=== PATIENT | female | born 1950 | race Caucasian/White ===

== ENCOUNTER 2017-02-26 09:43 | Outpatient (CLI) | payer MEDICARE ==
--- NOTE | 2017-02-26 16:23 | DEXA Report ---
DEXA SCAN: 02/26/2017 CLINICAL INDICATION: Postmenopausal. TECHNIQUE: Dual energy x-ray absorptiometry (DXA) was performed on a [employer] system. Regions measured are the AP spine, femoral neck, and, if needed, forearm. COMPARISON: None. In accordance with the International Society for Clinical Densitometry (ISCD) guidelines, data from previous exams may be reanalyzed using current recommendations and techniques. This is done to allow a more accurate basis for comparison with the current study. FINDINGS The data for the lumbar spine is as follows: REGION BMD (g/cm/cm) T-SCORE Z-SCORE L1 0.927 -1.7 -0.3 L2 0.962 -2.0 -0.6 L3 0.893 -2.6 -1.1 L4 0.806 -3.3 -1.9 TOTAL 0.893 -2.4 -1.0 NOTE: All evaluable vertebrae are used for classification. The data for the hip is as follows: REGION BMD (g/cm/cm) T-SCORE Z-SCORE Neck 0.786 -1.8 -0.4 TOTAL 0.828 -1.4 -0.3 NOTE: The femoral neck or total proximal femur, whichever is lowest, is used for classification. IMPRESSION: THE WHO CLASSIFICATION BASED ON THE INTERNATIONAL REFERENCE STANDARD IS OSTEOPENIA. THE FRACTURE RISK IS INCREASED. RECOMMENDATION: Patients with diagnosis of osteoporosis or osteopenia should have regular bone mineral density assessment. For those eligible for Medicare, routine testing is allowed once every 2 years. Testing frequency can be increased for patients who have rapidly progressing disease or for those who are receiving medical therapy to restore bone mass. COMMENT: World Health Organization (WHO) definitions for osteoporosis and osteopenia: NORMAL BMD: T-score at -1.0 or higher, fracture risk is low. OSTEOPENIA BMD: T-score between -1.0 and -2.5, fracture risk is increased. OSTEOPOROSIS BMD: T-score at -2.5 or lower, fracture risk high. National Osteoporosis Foundation recommends: 1. Obtain adequate dietary calcium (at least 1200 mg per day) and vitamin D (400 -800 international units per day). 2. Participate, as appropriate, in regular weightbearing and muscle- strengthening exercise. 3. Avoid tobacco use and reduce alcohol and caffeine intake. 4. For more detailed information see the website at www.NOF.org. MTDD
== END 2017-02-26 09:44 | disposition home or self-care (01) ==
LOC: DI 09:43
PROVIDERS: ATTEND Physician Assistant
DX: Z13.820 Encounter for screening for osteoporosis (principal); M85.89 Other specified disorders of bone density and structure, multiple sites; Z78.0 Asymptomatic menopausal state
CPT/HCPCS: 77080

== ENCOUNTER 2017-06-21 10:41 | Outpatient (CLI) | payer MEDICARE ==
[2017-06-21 18:42] LABS: THYROID STIMULATING HORMONE 0.41 uIU/mL (0.34-5.60)
[2017-06-21 18:58] LABS: CHOL/HDL RATIO 4.4 (<4.4); CHOLESTEROL 255 mg/dL; HDL CHOLESTEROL 58 mg/dL; LDL CHOLESTEROL,CALCULATED 177 mg/dL; LDL/HDL RATIO 3.1 (<4.4); MAGNESIUM 2.2 mg/dL (1.7-2.8); VLDL CHOLESTEROL 20 mg/dL
[2017-06-22 14:26] LABS: FREE T4 (FREE THYROXINE) 1.4 ng/dL (0.58-1.64)
== END 2017-06-21 10:42 | disposition home or self-care (01) ==
LOC: LAB.F 10:41
PROVIDERS: ATTEND Internal Medicine
DX: C73 Malignant neoplasm of thyroid gland (principal); E03.9 Hypothyroidism, unspecified; E78.5 Hyperlipidemia, unspecified; R07.81 Pleurodynia; I10 Essential (primary) hypertension; E55.9 Vitamin D deficiency, unspecified; Z90.09 Acquired absence of other part of head and neck
CPT/HCPCS: 36415; 80061; 82306; 82310; 83721; 83735; 84436; 84439; 84443; 84481; 85379

== ENCOUNTER 2017-07-01 14:25 | Outpatient (CLI) | payer MEDICARE ==
--- NOTE | 2017-07-01 17:40 | Ultrasound Report ---
RIGHT LEG VENOUS DUPLEX: 07/01/2017 CLINICAL INDICATION: History of trauma, persistent pain. TECHNIQUE: Real-time sonographic vascular imaging was performed by the test clerk through the right lower extremity utilizing both color flow and Doppler spectral analysis. Multiple financial services representative static images were saved for review. FINDINGS: A right lower extremity venous sonogram is performed revealing the common femoral, superficial femoral, profunda femoris, and popliteal veins to be adequately visualized without intraluminal defects. There is normal venous compression, augmentation, phasicity, and spontaneity of venous flow. In the calf, the visualized more cephalad portions of posterior tibial and peroneal veins are grossly compressible, without filling defects. IMPRESSION: NO EVIDENCE OF DEEP VENOUS THROMBOSIS. TD: 07/01/2017 17:40
== END 2017-07-01 14:26 | disposition home or self-care (01) ==
LOC: DI 14:25
PROVIDERS: ATTEND Internal Medicine
DX: M79.661 Pain in right lower leg (principal); R22.41 Localized swelling, mass and lump, right lower limb

== ENCOUNTER 2019-06-14 09:48 | Outpatient (CLI) | payer MEDICARE ==
[2019-06-14 18:05] LABS: ALBUMIN 4.2 g/dL (3.2-5.5); ALBUMIN/GLOBULIN RATIO 1.6 (1.0-2.2); ALKALINE PHOSPHATASE 53 IU/L (42-121); ALT ALANINE AMINOTRANSFERASE 17 IU/L (10-60); AST ASPARTATE AMINOTRANSFERASE 17 IU/L (10-42); BILIRUBIN,TOTAL 1.2 mg/dL (0.2-1.0); BUN - BLOOD UREA NITROGEN 12 mg/dL (6-20); CALCIUM 8.8 mg/dL (8.5-10.3); CARBON DIOXIDE - CO2 26 mmol/L (21-32); CHLORIDE 105 mmol/L (101-111); CHOL/HDL RATIO 3.9 (<4.4); CHOLESTEROL 223 mg/dL; CREATININE 0.6 mg/dL (0.4-1.0); GFR - MDRD 99 (>89); GLUCOSE 91 mg/dL (70-100); HDL CHOLESTEROL 57 mg/dL; LDL CHOLESTEROL,CALCULATED 152 mg/dL; LDL/HDL RATIO 2.7 (<4.4); SODIUM 139 mmol/L (135-145); TOTAL PROTEIN 6.9 g/dL (6.7-8.2); VLDL CHOLESTEROL 14 mg/dL
== END 2019-06-14 09:49 | disposition home or self-care (01) ==
LOC: LAB.S 09:48
PROVIDERS: ATTEND Registered Nurse
DX: E89.0 Postprocedural hypothyroidism (principal); I48.0 Paroxysmal atrial fibrillation; E78.5 Hyperlipidemia, unspecified
CPT/HCPCS: 36415; 80053; 80061; 83721; 84443

== ENCOUNTER 2021-10-06 11:19 | Emergency (ER) | payer MEDICARE ==
[2021-10-06 11:30] VITALS: BP 139/57
--- NOTE | 2021-10-06 12:21 | ED Physician Documentation ---
PD HPI ABD PAIN - Stated complaint Stated Complaint: ABD PAIN/CONSTIPATION - Chief complaint Chief Complaint: Abd Pain - History obtained from History obtained from: Patient, Family - History of Present Illness Timing - onset: How many days ago (7) Timing - duration: Days (7) Timing - details: Gradual onset, Still present Quality: Cramping Location: All over / everywhere Improved by: Laying still Worsened by: Moving Associated symptoms: Constipation Similar symptoms before: Diagnosis (constipation) Recently seen: Not recently seen - Additional information Additional information: 71-year-old female her last normal bowel movement 1 week ago has developed abdominal pain that comes in waves and she has not been able to produce a stool she did try to use an enema today had no luck as it just would not go in.She indicates that she believes the constipation is related to travel and being out of sync with her usual.She has had this happen to her previously. Review of Systems Constitutional: denies: Fever Ears: denies: Ear pain Nose: denies: Congestion Throat: denies: Sore throat Respiratory: denies: Cough GI: reports: Abdominal Pain, Constipation. denies: Vomiting : denies: Dysuria, Frequency PD PAST MEDICAL HISTORY - Allergies Allergies/Adverse Reactions: Allergies Allergy/AdvReac Type Severity Reaction Status Date / Time Sulfa (Sulfonamide Allergy Unknown Verified 10/06/21 11:30 Antibiotics) PD ED PE NORMAL - General General: Alert and oriented X 3, No acute distress, Well developed/nourished - HEENT HEENT: Atraumatic, PERRL, EOMI - Neck Neck: Supple, no meningeal sign - Respiratory Respiratory: No respiratory distress - Abdomen Abdomen: Normal bowel sounds, Soft, Non tender, Non distended, No organomegaly - Rectal Rectal: Other (With Ada as a acct exec I am able to examine the rectum find impacted stool I am able to break up the impactions.) - Derm Derm: Normal color, Warm and dry, No rash - Extremities Extremities: No deformity, No edema - Neuro Neuro: Alert and oriented X 3, rv mechanic 2-12 intact, No motor deficit, No sensory deficit, Normal speech Eye Opening: Spontaneous Motor: Obeys Commands Verbal: Oriented GCS Score: 15 - Psych Psych: Normal mood, Normal affect Results - Vitals Vitals: Vital Signs - 24 hr 10/06/21 11:26 Temperature 36.4 C L Heart Rate 97 Respiratory 18 Rate Blood Pressure 139/57 H O2 Saturation 99 PD MEDICAL DECISION MAKING - ED course Complexity details: considered differential, d/w patient ED course: 71-year-old female with a weeklong history of constipation has fecal impaction this is disrupted a enema is placed and she has success. Departure - Departure Disposition: Home, Self Care Clinical Impression: Constipation Qualifiers: Constipation type: unspecified constipation type Qualified Code(s): K59.00 - Constipation, unspecified Condition: Stable Instructions: ED Constipation Follow-Up: Frank Peña MD [Primary Care Provider] - Comments: Lelo, today it looks like you are constipated and looks like we have had some relief in the emergency department. I suspect there is more to come. My recommendation is to take some milk of magnesia when you return home to finish cleaning out. Then to retrain the colon follow that with 2 weeks of regular use of MiraLAX to retrain the colon. Discharge Date/Time: 10/06/21 13:13
== END 2021-10-06 13:13 | disposition home or self-care (01) ==
LOC: ED 11:19
DX: K59.00 Constipation, unspecified (principal)
CPT/HCPCS: 99282

== ENCOUNTER 2022-12-23 09:27 | Outpatient (CLI) | payer MEDICARE ==
--- NOTE | 2022-12-23 11:53 | DEXA Report ---
PROCEDURE: Dexa Spine and/or Hip INDICATIONS: POST MENOPAUSAL TECHNIQUE: Dual energy x-ray absorptiometry (DXA) was performed on a [employer] System. Regions measur ed are the AP Spine, femoral neck, and if needed forearm. COMPARISON: 02/26/2017 FINDINGS: Lumbar Spine: Bone Mineral Density 0.853 g/cm/cm,T score -2.7. There is interval 4.5% decrease in total lumbar spi ne bone density. Left Femoral Neck: Bone Mineral Density 0.709 g/cm/cm, T score -2.4. Left Hip: Bone Mineral Density 0.735 g/cm/cm,T score -2.2. There is interval 11.2% decrease in total left hip b one density. (T score greater or equal to -1.0: NORMAL) (T score from -1.1 to -2.4: OSTEOPENIA) (T score less than or equal to -2.5 to: OSTEOPOROSIS) Impression: By WHO criteria, this patient has osteoporosis. Patients with diagnosis of osteoporosis or osteopenia should have regular bone mineral density assess ment. For those eligible for Medicare, routine testing is allowed once every 2 years. Testing frequ ency can be increased for patients who have rapidly progressing disease or for those who are receivin g medical therapy to restore bone mass. Reviewed by: Marcelino Lopez MD on 12/23/2022 11:51 AM PDT Approved by: Marcelino Lopez MD on 12/23/2022 11:51 AM PDT Station ID: [id number]
== END 2022-12-23 09:28 | disposition home or self-care (01) ==
LOC: DI 09:27
PROVIDERS: ATTEND Internal Medicine
DX: M81.0 Age-related osteoporosis without current pathological fracture (principal)